=== PATIENT | female | born 1950 | race Caucasian/White ===

== ENCOUNTER 2016-07-24 11:54 | Emergency (ER) | payer MEDICARE, OTHER ==
[~2016-07-24 11:54] MED LIST: ACTONEL35 MG PO; AXID300 MG PO; CAL12OSR PO; CALTRA600D PO; CALTRAT600 PO; CENTRUM TAB1 TAB PO; CHILDREN PO; CITRACAL PO; CLARIT10 PO; DITRO5 PO; DITROXL5 PO; FERROUS SULF325 M1 PO; FLUCON1 PO; FORTICAL200 MG/ACT NAS; ISOPTINSR PO; IVVIBRA; KDUR20 PO; L20 PO; LIPITOR40 PO; MAGOX4 PO; MAPAP PO; MAX25 PO; MIRALAX POWDER1 PKT PO; MIRALAXPKT PO; MULTI-VIT/F1 OR; MULTIPLE VIT PO; MULTIVIT/MIN PO; MULTIVITAMI1 PO; PEG; PREM625 PO; PREV30 PO; PRILO PO; PRIN10 PO; PROTONIX PO; RECLAST IV; REFRESH TEAR0.5 % OP; SENOKOTS PO; SENTAB PO; V180SR PO; VERELAN240 MG PO; VITA10 PO; VITAMIN D1000 UNI1 PO; VITAMIN D31000 UNIT PO; VITAMIN D400 UNI1 PO; VYTORIN 10/20 T1 TAB PO
[2016-07-30] MEDS ORDERED: 8 HOUR650 MG PO (14:53)
[2016-07-30] MEDS ORDERED: CHILDREN PO (14:55)
[2016-07-30] MEDS ORDERED: NORCO1 TA1 PO (14:57)
[2016-07-30] MEDS ORDERED: PRIN10 PO (14:58)
[2016-07-30] MEDS ORDERED: CALAN120 MG PO (15:02)
[2016-07-30] MEDS ORDERED: FORTEO SC (15:03)
== END 2016-07-24 12:32 | disposition home or self-care (01) ==
LOC: ER 11:54
PROC: 0T9B70Z Drainage of Bladder with Drainage Device, Via Natural or Artificial Opening (ICD-10-PCS; principal; 2016-07-24)
DX: R33.9 Retention of urine, unspecified (principal); F03.90 Unspecified dementia, unspecified severity, without behavioral disturbance, psychotic disturbance, mood disturbance, and anxiety; K21.9 Gastro-esophageal reflux disease without esophagitis; D64.9 Anemia, unspecified; E78.5 Hyperlipidemia, unspecified; I10 Essential (primary) hypertension; Z90.710 Acquired absence of both cervix and uterus; Z79.899 Other long term (current) drug therapy
CPT/HCPCS: 99283

== ENCOUNTER 2016-08-06 08:01 | Day surgery (SDC) | payer MEDICARE, OTHER ==
--- NOTE | ~2016-08-06 | EGD ---
EGD REPORT [facility] [address] [address] NAME: ANNA UGALDE : [birth year] STATUS : [place] [facility] [place]#: [id number] AGE: 66 ADM/REG DATE : 08/06/16 MR#: [id number] REPORT SERV DATE: 08/06/16 DICTATED BY: ISABELA RITCHIE DATE: 08/06/16 REPORT STATUS : Draft [facility]: [facility] DATE: 08/06/16 [facility] Patient Name: Anna Ugalde Date of : 1950 Attending MD: ISABELA RITCHIE MD Procedure Date No Time: 08/06/2016 Procedure: Upper GI endoscopy Indications: Dysphagia, Gastro-esophageal reflux disease Referring MD: JOCELYN MENDENHALL Medicines: Propofol per Anesthesia Complications: No immediate complications. Procedure: Pre-Anesthesia Assessment: - ASA Grade Assessment: III - A patient with severe systemic disease. After obtaining informed consent, the endoscope was passed under direct vision. Throughout the procedure, the patient's blood pressure, pulse, and oxygen saturations were monitored continuously. The GIF [id number] was introduced through the mouth, and advanced to the third part of duodenum. The upper GI endoscopy was accomplished without difficulty. The patient tolerated the procedure well. Findings: Non-severe esophagitis with no bleeding was found in the entire esophagus. A benign-appearing, intrinsic mild stenosis was found in the upper third of the esophagus and was traversed. A guidewire was placed and the scope was withdrawn. Dilation was performed with a Savary dilator with mild resistance at 60 Fr. The esophagus looked satisfactory post dilation A large hiatus hernia was present. A large hiatus hernia was present. Seen on retroflexion, done prior to dilation Diffuse mild inflammation characterized by congestion (edema) and erythema was found in the entire examined stomach. The examined duodenum was normal. Impression: - Non-severe reflux esophagitis. - Benign-appearing esophageal stricture. Dilated. - Hiatus hernia. - Hiatus hernia. - Gastritis. - Normal examined duodenum. Recommendation: - Patient has a contact number available for EGD REPORT [address] [address] NAME: ANNA UGALDE : [birth year] [place]US : [place] [facility] [place] PAT#: [id number] AGE: 66 ADM/REG DATE : 08/06/16 MR#: [id number] REPORT SERV DATE: 08/06/16 DICTATED BY: ISABELA RITCHIE DATE: 08/06/16 REPORT STATUS : Draft TRANSCRIBED BY: [employer] DATE: 08/06/16 emergencies. The signs and symptoms of potential delayed complications were discussed with the patient. Return to normal activities tomorrow. Written discharge instructions were provided to the patient. - diet is clear liquid today, full liquid tomorrow, soft mushy food the next day, and resume usual diet the day after that. - Continue present medications. - Return to my office as previously scheduled. - Discharge patient to home. Procedure Code(s): --- Professional --- 03170, Esophagogastroduodenoscopy, flexible, transoral; with insertion of guide wire followed by passage of dilator(s) through esophagus over guide wire Diagnosis Code(s): --- Professional --- K21.0, Gastro-esophageal reflux disease with esophagitis K22.2, Esophageal obstruction K44.9, Diaphragmatic hernia without obstruction or gangrene K29.70, Gastritis, unspecified, without bleeding R13.10, Dysphagia, unspecified CPT copyright 2013 [employer] [place] [employer]. All rights reserved. The codes documented in this report are preliminary and upon safety grooving machine operator review may be revised to meet current compliance requirements. Isabela Ritchie MD ISABELA RITCHIE MD 08/06/2016 12:04 PM This report has been signed electronically. Number of Addenda: 0 Note Initiated On: 08/06/2016 11:23 AM Scope Withdrawal Time 0 hours 0 minutes 0 seconds [id number] [id number]
[~2016-08-06 08:01] MED LIST changes: +8 HOUR650 MG PO; +CALAN120 MG PO; +FORTEO SC; +NORCO1 TA1 PO
== END 2016-08-06 23:59 | disposition home or self-care (01) ==
LOC: DMU 08:01
PROVIDERS: Internal Medicine Gastroenterology
PROC: 0D748ZZ Dilation of Esophagogastric Junction, Via Natural or Artificial Opening Endoscopic (ICD-10-PCS; principal; 2016-08-06 09:30)
DX: K22.2 Esophageal obstruction (principal); K44.9 Diaphragmatic hernia without obstruction or gangrene; K29.70 Gastritis, unspecified, without bleeding; K21.0 Gastro-esophageal reflux disease with esophagitis; I10 Essential (primary) hypertension; E78.00 Pure hypercholesterolemia, unspecified; M19.90 Unspecified osteoarthritis, unspecified site; M81.0 Age-related osteoporosis without current pathological fracture; K21.9 Gastro-esophageal reflux disease without esophagitis; Z90.710 Acquired absence of both cervix and uterus; D64.9 Anemia, unspecified; Z98.42 Cataract extraction status, left eye; Z96.641 Presence of right artificial hip joint; Z98.890 Other specified postprocedural states
CPT/HCPCS: 93005